=== PATIENT | female | born 1940 | race Caucasian/White ===

== ENCOUNTER 2017-12-13 08:43 | Inpatient (IN) | payer OTHER ==
[~2017-12-13] VITALS: Ht 162.6 cm; Wt 70.8 kg
[~2017-12-13 08:43] MED LIST: ALBUTEROL2.5 MG/3 M; AZITHROMYCIN500 MG; BENZONATATE200 M1; CEFPROZIL250 MG; GUAIFENESIN DM1 EACH PO; SINGULAIR 10MG10 MG; TUSSIN DM COUG237 ML; ZITHROMAX500 MG PO
[2017-12-13] MEDS ORDERED: LIPITOR40 MG PO (09:32)
[2017-12-13] MEDS ORDERED: ALPHALIPOIC ACID PO (09:33)
[2017-12-24] MEDS ORDERED: B Complex CAPSULE PO (12:57)
[2017-12-24] MEDS ORDERED: INTEGRA F CAPS1 EACH PO (12:57)
[2017-12-24] MEDS ORDERED: XARELTO20 MG PO (12:57)
[2017-12-24] MEDS ORDERED: AMIODARONE HCL200 MG PO (12:57)
[2017-12-24] MEDS ORDERED: TOPROL XL25 M1 PO (12:57)
== END 2017-12-24 13:46 | DRG 470 ==
LOC: O/R 12-19 06:00 → SURG 12-19 06:00 → SURH 12-19 07:15 → MEDI 12-19 10:19 → SURG 12-19 10:19 → SURH 12-19 15:15 → SURG 12-22 03:47
PROVIDERS: Orthopaedic Surgery
PROC: 0MNP0ZZ Release Left Knee Bursa and Ligament, Open Approach (ICD-10-PCS; 2017-12-19)
PROC: B246ZZZ Ultrasonography of Right and Left Heart (ICD-10-PCS; 2017-12-19)
PROC: 4A12X4Z Monitoring of Cardiac Electrical Activity, External Approach (ICD-10-PCS; 2017-12-19)
PROC: 0SRD0J9 Replacement of Left Knee Joint with Synthetic Substitute, Cemented, Open Approach (ICD-10-PCS; principal; 2017-12-19 15:15)
DX: M17.12 Unilateral primary osteoarthritis, left knee (principal); D62 Acute posthemorrhagic anemia; I50.30 Unspecified diastolic (congestive) heart failure; M81.0 Age-related osteoporosis without current pathological fracture; I48.0 Paroxysmal atrial fibrillation; J45.998 Other asthma; D69.59 Other secondary thrombocytopenia

== ENCOUNTER 2022-11-29 08:49 | Emergency (ER) | payer OTHER ==
[~2022-11-29] VITALS: Ht 157.5 cm; Wt 64.9 kg
[~2022-11-29 08:49] MED LIST changes: +ALPHALIPOIC ACID PO; +AMIODARONE HCL200 MG PO; +B Complex CAPSULE PO; +INTEGRA F CAPS1 EACH PO; +LIPITOR40 MG PO; +TOPROL XL25 M1 PO; +XARELTO20 MG PO
== END 2022-11-29 14:15 | disposition home or self-care (01) ==
LOC: ER 08:49
DX: U07.1 COVID-19 (principal); J06.9 Acute upper respiratory infection, unspecified; Z88.8 Allergy status to other drugs, medicaments and biological substances